=== PATIENT | female | born 1965 | race Caucasian/White ===

== ENCOUNTER 2021-09-29 06:20 | Day surgery (SDC) | payer BC, SELFPAY ==
[2021-09-29 06:57] VITALS: BP 157/66; PULSE 89; RESP 18; TEMP 36.7; O2SAT 100; BMI 29.4
[2021-09-29] MEDS: Lactated Ringers 1,000 ML 15 ML IV (07:11)
[2021-09-29 07:18] LABS: Absolute Lymphocyte Count 2.94 X10^3/uL (0.83-4.51); Absolute Neutrophil Count 4.2 X10^3/uL (2.0-7.7); Basophil# 0.02 X10^3/uL; Basophil% 0.3 % (0-1); Eosinophil# 0.14 X10^3/uL; Eosinophils% 1.8 % (0-5); Hematocrit 40.1 % (37-47); Hemoglobin 13.6 g/dL (12.0-15.0); Lymphocyte # 2.94 X10^3/ul (0.83-4.51); Lymphocyte % 37.3 % (19-41); Mean Corp Hgb Conc 33.9 g/dL (32-36); Mean Corpuscular Hgb 31.9 pg (27.0-32.0); Mean Corpuscular Volume 93.9 fL (81-99); Mean Platelet Vol. 9.1 fl (6.2-12.0); Monocyte# 0.54 X10^3/uL; Monocyte% 6.8 % (0-10); NRBC Flagged by Analyzer 0 % (0-5); Neutrophil # 4.22 X10^3/uL (2.7-7.7); Neutrophil % 53.4 % (47-70); Platelet Count 221 K/mm3 (150-450); RBC Distribution Width CV 12.2 % (11.6-14.6); RBC Distribution Width SD 42.4 fl (35.1-43.9); Red Blood Count 4.27 M/mm3 (4.2-5.4); White Blood Count 7.9 K/mm3 (4.4-11.0)
[2021-09-29 07:30] LABS: Anion Gap 5 (5-15); BUN 14 mg/dL (7-18); BUN/Creat Ratio 18.7 RATIO (10-20); Calcium,Total 9.2 mg/dL (8.5-10.1); Chloride 109 mmol/L (98-107); Creatinine, Serum 0.75 mg/dL (0.55-1.02); EST Glomerular Filtration Rate 85 mL/min (>60); Est Glom Filt Rate - Afr Amer 102 mL/min (>60); Estimated Creatinine Clearance 68.46 ml/min; Glucose 101 mg/dL (74-106); Sodium Level 140 mmol/L (136-145)
[2021-09-29] MEDS: Cefazolin 2 GM in 0.9% Normal Saline 100 ML IV (07:57)
--- NOTE | 2021-09-29 09:26 | PCM.DC ---
Discharge Instructions Diet Discharge Diet: No restrictions Activity Discharge Activity: Return to Normal Activity and May Not Drive (while on narcotics) Dressing / Incision Call your doctor if you observe: Fever of 101 or Higher, Inability to urinate and Inability to have a bowel movement Follow Up Care Please Follow Up With: Leona Gary MD When: in 2-3 weeks in the office with KUB. call for appt Test Results: Test results from this visit will be discussed in further detail at your follow-up appointment, if applicable. Discharge Plan Admission Attending Provider: Leona Gary Primary Care Provider: Xiomara Arteaga Discharge Orders/Prescriptions Prescriptions: New oxycodone-acetaminophen [oxycodone-acetaminophen] 1 TABLET tablet 2 tab PO Q8H PRN PRN (Reason: Pain) 7 Days Qty: 20 RF: 0 cephalexin [cephalexin] 500 MG capsule 500 mg PO Q12 3 Days Qty: 6 RF: 0 phenazopyridine [Pyridium] 200 MG tablet 200 mg PO TID PRN PRN (Reason: Bladder Spasms) 7 Days Qty: 30 RF: 0 Continued ascorbic acid (vitamin C) [Vitamin C] 500 mg Tablet 500 mg PO DAILY RF: 0 Referrals / Follow Up: Xiomara Arteaga PA [Primary Care Provider] - Disposition Disposition (needs filled in before D/C Order can be placed): Home, Self Care
--- NOTE | 2021-09-29 09:29 | OP.PCM_ITS ---
Problems Associated Problem List Diagnoses (1) Hydronephrosis: (2) Right renal stone: Report of Operation Date of Procedure: 09/29/21 Pre-Operative Diagnosis: Right renal calculus, hydronephrosis Post-Operative Diagnosis: Same Surgery/Procedure Performed:: Cystoscopy, right ureteral stent insertion, right renal extracorporal shockwave lithotripsy Surgeon: Leona Gary Type of Anesthesia: General Specimen's removed: None Description of Procedure: The patient is a 56-year-old female presented to the office with a 1 cm right renal calculus with hydronephrosis. She is here for definitive surgical intervention with stent insertion and shockwave lithotripsy. Informed consent was obtained. The patient was taken to the operating room and placed on the operating room table. Anesthesia monitored the head, neck, airway, IV access and vital signs throughout the case. Once anesthesia was appropriate ministered, the patient was placed into dorsal lithotomy position was prepped and draped in usual sterile fashion. The cystoscope was inserted through the urethra under direct visualization into the urinary bladder. The bladder mucosa was visualized in its entirety and found to be without mass, ulceration or other abnormality. The ureteral orifices were located in the correct anatomic position in the area of the trigone. The right ureteral orifice was carefully intubated with a 0.035 Glidewire which was extended into the renal pelvis as visualized on fluoroscopy. A 6 Malaysian 24 cm JJ stent was then passed over the Glidewire without difficulty. It was positioned well with curling in the renal pelvis as well as the urinary bladder. At this point the patient's bladder was emptied and the cystoscope was removed. She was repositioned on the lithotripter table. The stone was easily visualized and approximately 1 cm in size. 3000 shocks were applied to the stone which appeared to be well fragmented at the conclusion of the case. The patient was then awakened and taken to the recovery room in good condition. There were no complications during this procedure. Grafts/Implants Used: 6 x 24 JJ stent Complications None Admit VTE Documentation VTE Present on Admission: Yes VTE Mechan Device Prophylaxis: SCD's VTE Pharm Prophylaxis ordered?: No Reason prophylaxis not ordered:: Treatment Not Indicated
[2021-09-29 10:20] VITALS: BP 157/66; BP 173/72; PULSE 56; RESP 16; TEMP 36.1; O2SAT 100
== END 2021-09-29 23:59 | disposition home or self-care (01) ==
LOC: SDC 06:26 → AC 06:28
PROVIDERS: Referring Provider Urology; Visit Provider Urology
PROC: (CPT 50590; principal; 2021-09-29 07:45)
DX: N13.2 Hydronephrosis with renal and ureteral calculous obstruction (principal); Z87.442 Personal history of urinary calculi
CPT/HCPCS: 52332; 50590; 00910; 80048; 85025; J7120; C2617; J2405

== ENCOUNTER 2021-10-13 15:02 | Outpatient (CLI) | payer BC, SELFPAY ==
--- NOTE | 2021-10-13 15:10 | RAD_ITS ---
EXAM: XR ABDOMEN, 1 VIEW : 1965 CLINICAL INDICATION: CALC OF KIDNEY TECHNIQUE: Frontal supine view of the abdomen/pelvis. This report was created using [employer] report generation technology. COMPARISON: None. FINDINGS: LOWER THORAX: No acute pathology. GASTROINTESTINAL TRACT: Unremarkable. Non-obstructive. No bowel or stomach distention. ORGANS: Unremarkable as visualized. No organomegaly. No abnormal calcifications. BONES/JOINTS: No acute pathology. SOFT TISSUES: No acute pathology. TUBES, LINES AND DEVICES: There is a right ureteral stent in place. RAD/Abdomen Single View IMPRESSION: Right ureteral stent. There was a nonobstructive bowel gas pattern. at 1632 Reported and signed by: Tejinder Leonardo MD Electronically Signed: Tejinder Leonardo MD at 16:30 EDT ,
== END 2021-10-13 23:59 | disposition home or self-care (01) ==
PROVIDERS: Referring Provider Urology; Visit Provider Urology
DX: N20.0 Calculus of kidney (principal)
CPT/HCPCS: 74018

== ENCOUNTER → 2022-11-20 | Outpatient (CLI) | payer BC, SELFPAY ==
--- NOTE | 2022-11-20 13:20 | RAD_ITS ---
INDICATION: KUB- KIDNEY CALC. EXAMINATION/TECHNIQUE: X-RAY - XR Abdomen 1 View COMPARISON: FINDINGS: Removal right double-J stent. BOWEL GAS PATTERN: Non-obstructive. No bowel or stomach distention. FREE AIR: Not assessed on a single supine view. ORGANOMEGALY: Not seen. CALCIFICATIONS: No abnormal calcifications observed. LOWER CHEST: No acute pathology. BONES AND SOFT TISSUES: No acute pathology. RAD/Abdomen Single View IMPRESSION: Interval removal of right double-J stent. Normal bowel gas pattern. No evidence of tract calculi. Electronically Signed: Tashi Ramirez MD, JESSICA at 16:37 EDT ,
== END | disposition home or self-care (01) ==
LOC: MTLAB 13:18 → MTRAD 13:18
PROVIDERS: Referring Provider Urology; Visit Provider Urology
DX: N20.0 Calculus of kidney (principal)
CPT/HCPCS: 74018